=== PATIENT | male | born 1990 | race Two or more races ===

== ENCOUNTER 2025-03-25 01:11 | Emergency (ER) | payer OTHER, SELFPAY ==
--- NOTE | 2025-03-25 01:16 | EKG_ITS ---
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
[2025-03-25 01:41] VITALS: BP 168/105; PULSE 69; RESP 18; TEMP 36.9; O2SAT 97
--- NOTE | 2025-03-25 02:16 | EDNOTE_ITS ---
ED Chest Pain RME/HPI General Chief Complaint: Chest Pain Stated Complaint: CHEST AREA BACK PAIN RADIATING TO BACK Time Seen by Provider: 03/25/25 02:16 Arrival date/time: 03/25/25 01:11 RME / HPI RME / HPI narrative: See MDM for Dr. Oliver's HPI Documentation. Related Data Allergies Allergy/AdvReac Type Severity Reaction Status Date / Time Penicillins Allergy Mild UNKOWN Verified 03/25/25 01:12 Review of Systems Review of Systems Systems Reviewed: All systems reviewed, normal except as documented ED Exam Narrative Physical exam: See MDM for Dr. Oliver's Physical Exam Documentation. Course Quality Measures none Orders Category Date Time Status EKG (ED ONLY) *Do not use* NOW Care 03/25/25 01:16 Completed Saline [Insert IV] NOW Care 03/25/25 02:16 Completed EKG (ED Only) Stat Exams 03/25/25 01:16 Draft XR chest 1V portable Stat Exams 03/25/25 02:17 Completed BNP [B-Type Natriuretic Peptide] Stat Lab 03/25/25 02:22 Completed Bilirubin,Direct Stat Lab 03/25/25 02:22 Completed CBC Stat Lab 03/25/25 02:22 Completed CMP [Comprehensive Metabolic Panel] Stat Lab 03/25/25 02:22 Completed D-Dimer Stat Lab 03/25/25 02:22 Completed Hemoglobin A1C [Glycohemoglobin w (eAG)] Stat Lab 03/25/25 02:22 Completed Lipase Stat Lab 03/25/25 02:22 Completed Magnesium Stat Lab 03/25/25 02:22 Completed TSH [Thyroid Stimulating Hormone] Stat Lab 03/25/25 02:22 Completed Troponin I Stat Lab 03/25/25 02:22 Completed Ketorolac Inj [Toradol Inj] Med 03/25/25 02:17 Discontinued 30 mg IVP X1 ONE Vital Signs Vital signs: Vital Signs Temperature 98.5 F 03/25/25 01:41 Pulse Rate 69 03/25/25 01:41 Respiratory Rate 18 03/25/25 01:41 Blood Pressure 168/105 H 03/25/25 01:41 Pulse Oximetry (%) 97 12/24/25 01:41 Oxygen Delivery Method Room Air 03/25/25 01:41 Chest Pain MDM Narrative MDM Narrative:: This section includes all my notes and documentations, including HPI, PE, and ED course. Freddie Oliver MD HPI: 34 y/o male presents with chest tightness with radiation to the back for several days. Patient is extra concerned after his uncle recently from heart attack. No shortness of breath. No unusual fatigue or malaise. No syncope or near syncope. No palpitations. No nausea or vomiting. No leg pain or swelling. The pain is definitely worse with certain movement. No other complaints. ROS: All negative except as documented in HPI. Physical Exam: General: Alert and oriented. No acute distress when remaining still. Eyes: Conjunctivae and lids clear. ENT: No nasal congestion. Neck: Supple. Heart: RRR. Lungs: No respiratory distress. Good air movement. No rhonchi, wheezing, rales. Abdomen: Soft and nontender. Skin: Warm and dry. Neuro: Alert and oriented X 3. I reviewed all diagnostic test results: My interpretation of the EKG: NSR (69 bpm) with no ST-T changes. My review of the chest x-ray report is prominent degenerative disc disease. Blood tests unremarkable, including negative troponin/D-dimer/BNP. At this point, diagnoses include: Musculoskeletal Chest Pain Treatment here included: Toradol 30 mg IV He felt much better. Recommended outpatient cardiac workup. Based on my best medical judgment, made decision no further evaluation or treatment indicated at this time. Patient understands and agrees to the discharge instructions customized and printed, see below. Discharge instructions from Dr. Oliver: 1. After extensive evaluation, there is no life-threatening condition.? Such as heart attack or pulmonary embolism (blood clots in your lungs) or pneumothorax (collapsed lung). 2. Your pain is originating from the chest wall and not from an internal organ.? The chest wall has many joints and muscles between the ribs, so sprains and strains are common.?? 3. Apply ice or heat if helpful.? Tylenol/ibuprofen as needed. 4. See a private doctor on 03/27/2025 for recheck. To make sure there is no serious underlying heart condition, ask to help you get more tests for your heart that cannot be done here in the ER.? Such as Holter Monitor (cardiac monitoring at home from a day to even a month), heart stress test (on treadmill or with medication), echocardiogram (imaging of your heart structures), heart catherization (checking for blockages in your heart arteries), and a referral to see a Mailing Machine Operator.? 5. Seek immediate medical care with worsening or with any concerns.? Freddie Oliver MD Patient data External records reviewed:: [facility] previous records (No prior ED records available for review.) Clinical information provided by:: patient Social determinants that could affect healthcare access:: none Patient has the following chronic illnesses:: None reported How is presenting disease/condition affected by chronic disease/condition?: no chronic disease Evaluation data The following diagnostics were reviewed and interpreted by me:: lab results, radiology exam(s) and EKG tracing(s) (My interpretation of the EKG: NSR (69 bpm) with no ST-T changes. Freddie Oliver MD) Lab and/or radiology exams considered but not ordered:: None Interpretation Summary: I reviewed all diagnostic test results: My interpretation of the EKG: NSR (69 bpm) with no ST-T changes. My review of the chest x-ray report is prominent degenerative disc disease. Blood tests unremarkable, including negative troponin/D-dimer/BNP. Medications / Prescriptions Medications or Prescriptions considered but not ordered:: None Medication administrations:: Medication Administration History Discontinued Medications Ketorolac Tromethamine (Ketorolac Inj 30 Mg/Ml Vial) 30 mg IVP X1 ONE Stop: 03/25/25 02:18 Last Admin: 03/25/25 03:04 Dose: 30 mg Documented By: ASHVIN Toradol 30 mg IV Consultations Consultation(s) initiated? (list below): No Diagnosis Chest Pain Differential Diagnosis: pneumothorax, stable angina, unstable angina pectoris, atypical chest pain, st elevation myocardial infarction and costochondritis Most likely diagnosis given after review of the tests above:: Musculoskeletal Chest Pain Admission Indicated Admission indicated?: not indicated Explain why admission is indicated or not indicated:: With significant improvement and no condition needing emergent intervention, there was no indication for admission. Admission Request Was there a request for admission?: No Disposition Plan Disposition Plan: Discharge Discharge Attestation Discharge Attestation: The patient and all family members were given an opportunity to ask questions and understood the discharge instructions. Discharge instructions specifically effects, indications for sooner follow up or return to the emergency department, and the expected course of current diagnosis. Patient condition: Stable Discharge Plan Plan Patient Disposition: HOME (Self Care) Problem List Clinical Impression: Chest pain Patient/Caregiver Discharge Instructions Discharge Activity: activity as tolerated Education Materials: ED Chest Pain, Uncertain Cause, ED Chest Wall Strain (Child) Additional Instructions: Discharge instructions from Dr. Oliver: 1. After extensive evaluation, there is no life-threatening condition.? Such as heart attack or pulmonary embolism (blood clots in your lungs) or pneumothorax (collapsed lung). 2. Your pain is originating from the chest wall and not from an internal organ.? The chest wall has many joints and muscles between the ribs, so sprains and strains are common.?? 3. Apply ice or heat if helpful.? Tylenol/ibuprofen as needed. 4. See a private doctor on 03/27/2025 for recheck. To make sure there is no serious underlying heart condition, ask to help you get more tests for your heart that cannot be done here in the ER.? Such as Holter Monitor (cardiac monitoring at home from a day to even a month), heart stress test (on treadmill or with medication), echocardiogram (imaging of your heart structures), heart catherization (checking for blockages in your heart arteries), and a referral to see a Mailing Machine Operator.? 5. Seek immediate medical care with worsening or with any concerns.?? Print Language: Telugu Stand Alone Forms: Maria[employer]ose Award Info., Patient Portal Info Letter
--- NOTE | 2025-03-25 02:17 | XR_ITS ---
AP upright portable chest film 03/25/2025 on 2:27 a.m. INDICATION: Shortness of breath today Comparison study 12/28/2022 FINDINGS: The heart and mediastinum appear radiographically normal. Lungs and pleural space are clear in the dorsal spine there is levoscoliosis of the mid-lower dorsal spine measuring 22 degrees. There is also multilevel significant degenerative disc space narrowing with surrounding osteophytes IMPRESSION: 1. No acute cardiopulmonary disease. 2. 22 degrees of levoscoliosis of the mid-lower dorsal spine with multilevel prominent degenerative disc disease
[2025-03-25 02:36] LABS: Basophils # (Auto) 0.0 Thou/mm3 (0.0-0.2); Basophils % (Auto) 0 % (0-2.5); Eosinophils # (Auto) 0.3 Thou/mm3 (0.0-0.5); Eosinophils % (Auto) 3 % (0-10); Hematocrit 43.5 % (41.0-53.0); Hemoglobin 15.8 g/dL (13.5-16.0); Immature Granulocytes Auto 0.03 Thou/mm3 (0.00-0.00); Lymphocytes # (Auto) 1.9 Thou/mm3 (1.0-4.8); Lymphocytes % (Auto) 19 % (10-50); Mean Corpuscular HGB Conc 36.3 g/dl (31.0-37.0); Mean Corpuscular Hemoglobin 30.8 pg (25.0-35.0); Mean Corpuscular Volume 85 fL (80-100); Monocytes # (Auto) 0.7 Thou/mm3 (0.0-0.8); Monocytes % (Auto) 6 % (0-12); Neutrophils # (Auto) 7.3 Thou/mm3 (1.8-7.7); Neutrophils % (Auto) 71 % (37-80); Nucleated Red Blood Cell # 0.00 Thou/mm3 (0.00-0.00); Nucleated Red Blood Cell % 0 /100 WBC (0); Platelet Count 239 Thou/mm3 (140-440); RDW Standard Deviation 37.3 fL (35.1-43.9); Red Blood Count 5.13 Miln/mm3 (4.50-5.90); White Blood Count 10.3 Thou/mm3 (3.8-10.6)
[2025-03-25 02:48] VITALS: BMI 34.9
[2025-03-25 02:49] LABS: Glucose Estimated Average 94 mg/dL (80-131); Hemoglobin A1C 4.9 % Hgb (4.8-6.0)
[2025-03-25 02:50] LABS: B-Type Natriuretic Peptide < 20 pg/mL (0-100)
[2025-03-25 02:55] LABS: D-Dimer 257 ng/mL (<600)
[2025-03-25 02:57] LABS: Alanine Aminotransferase 52 U/L (10-49); Albumin, Serum 4.8 gm/dL (3.5-5.0); Albumin/Globulin Ratio 1.7 (1.2-2.2); Alkaline Phosphatase 88 U/L (46-116); Anion Gap 11 (7-16); Aspartate Amino Transferase 45 U/L (0-34); BUN/Creatinine Ratio 11 Ratio (12-20); Bilirubin,Direct < 0.1 mg/dL (0.0-0.3); Bilirubin,Total 0.3 mg/dL (0.3-1.2); Blood Urea Nitrogen 11 mg/dL (9-23); Calcium 9.2 mg/dL (8.3-10.6); Calcium (Corrected) 9.2 mg/dL (8.5-10.1); Carbon Dioxide 25.2 mMol/L (20.0-31.0); Chloride 106 mMol/L (98-107); Creatinine (Component) 1.0 mg/dL (0.6-1.3); Estimated Creatinine Clearance 120.7 mL/min (>60); Globulin 2.8 gm/dL (2.3-3.5); Glucose 135 mg/dL (74-106); Lipase 33 U/L (12-53); Magnesium 2.1 mg/dL (1.6-2.6); Osmolality,Calculated 284 (275-295); Potassium 3.7 mMol/L (3.4-5.1); Sodium 142 mMol/L (136-145); Thyroid Stimulating Hormone 2.55 uIU/mL (0.55-4.78); Total Protein 7.6 gm/dL (5.7-8.2); Troponin I < 0.020 ng/mL (0.0-0.045); eGFR > 60 See Note
[2025-03-25] MEDS: KETOROLAC INJ 30 MG/ML VIAL IVP (03:04)
== END 2025-03-25 03:30 | disposition home or self-care (01) ==
LOC: SERX 03:31
PROVIDERS: Emergency Provider Emergency Medicine; PCP Internal Medicine
DX: R07.89 Other chest pain (principal); M51.35 Other intervertebral disc degeneration, thoracolumbar region
CPT/HCPCS: 36415; 71045; 80053; 82248; 83036; 83690; 83735; 83880; 84443; 84484; 85025; 85379; 93005; 96374; 99283; J1885